=== PATIENT | female | born 1985 | race Caucasian/White ===

== ENCOUNTER 2020-08-29 12:26 | Emergency (ER) | payer OTHER ==
[~2020-08-29] VITALS: Ht 170.2 cm; Wt 98.0 kg
[~2020-08-29 12:26] MED LIST: PRENA1 TRUE CO1 EACH PO
[2020-08-29] MEDS ORDERED: STOOL SOFTENER100 MG PO (12:58)
[2020-08-29] MEDS ORDERED: ONDANSETRON ODT8 MG PO (16:31)
== END 2020-08-29 17:07 | disposition home or self-care (01) ==
LOC: ED 12:26
DX: K80.20 Calculus of gallbladder without cholecystitis without obstruction (principal); Z88.0 Allergy status to penicillin
CPT/HCPCS: 76705; 80053; 81001; 83690; 84703; 85025; 96374; 99285-25; J2405

== ENCOUNTER 2021-05-06 05:40 | Day surgery (SDC) | payer OTHER ==
[~2021-05-06] VITALS: Ht 170.2 cm; Wt 95.9 kg
[~2021-05-06 05:40] MED LIST changes: +ONDANSETRON ODT8 MG PO; +STOOL SOFTENER100 MG PO
[2021-05-06] MEDS ORDERED: MULTI-VITAMIN1 EACH PO (06:00)
--- NOTE | 2021-05-06 09:13 | NUR ---
05/06/21 0913 Comfort Rosas 0818 PT TO PACU THRASHING AND KICKING SHE TOOK HER O2 MASK OFF. DENIES PAIN OR NAUSEA. 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
--- NOTE | 2021-05-06 10:18 | OR ---
[facility] [address] [place], [place] [address] Signed DATE OF OPERATION: 05/06/2021 SURGEON: Ophelia Sousa MD PREOPERATIVE DIAGNOSIS: Cholecystitis with cholelithiasis. POSTOPERATIVE DIAGNOSIS: Cholecystitis with cholelithiasis. PROCEDURES: Laparoscopic cholecystectomy with intraoperative cholangiogram. ESTIMATED BLOOD LOSS: Minimal. FINDINGS: Isadora indeed had multiple stones in the gallbladder. There were some cholesterolosis as well. She had some chronic inflammatory changes around the gallbladder as well. The common bile duct was unremarkable on the intraoperative cholangiogram. INDICATIONS: Isadora is a 36-year-old female, who now had three children, all born by . Earlier this year, she had a severe attack with epigastric abdominal pain radiating through to her back. She had been to the emergency room. Ultrasound revealed multiple small stones along with some sludge. The common bile duct was unremarkable. Gallbladder wall was not particularly thickened. There was no pericholecystic fluid. She felt better after being treated and was allowed to go home from the ER. She has continued to have intermittent right upper quadrant abdominal pain but not nearly as severe as her attack back in August 2020. She had been to her primary care provider. She was asked to see me as a general surgeon. I met with Isadora and her in the office. She told me her mother and both sisters had their gallbladders removed. Consequently, she is familiar with this process. I gave her a brochure in the office on the gallbladder. We went through it page by page. She understands the location and function of the gallbladder. We discussed laparoscopic versus open cholecystectomy. There is risk including, but not limited to bleeding, infection, scarring, change in contour of the skin, damage to bowel, damage to main bile duct, incisional hernias and other unforeseen comorbidities. She understands expected intraop and postop course. She had expressed understanding and wished to proceed. Electronically Signed By: OPHELIA SOUSA MD 05/06/21 1018 PATIENT NAME: ISADORA MURPHY OPERATIVE REPORT DATE OF : 89 REPORT #: [id number] PHYSICIAN: OPHELIA SOUSA MD PCP: YINA BURKS MD REPORT IS CONFIDENTIAL AND NOT TO BE RELEASED WITHOUT AUTHORIZATION [facility] [address] [place] [id number] Signed DESCRIPTION OF PROCEDURE: I met with Isadora and her this morning in our preop area. After answering the questions, she was taken in the operating room and placed in the supine position under general endotracheal tube anesthesia. Appropriate padding and monitoring were placed. She was given preoperative antibiotics along with subcutaneous heparin. SCDs were utilized. She was then prepped and draped in the usual sterile fashion. All trocars were placed in their usual positions under direct visualization of camera without difficulty. The gallbladder was grasped and elevated in the right upper quadrant. We took pictures throughout for photodocumentation. The triangle of [place] was dissected free and a clip had been placed on the cystic artery and it was divided. We introduced the intraoperative cholangiocatheter into the cystic duct. The intraoperative cholangiogram was found to be unremarkable. The cystic duct stump was secured with a PDS Endoloop along with two clips to torrey its location. The gallbladder was then carefully removed from the gallbladder fossa with the help of cautery and placed into an EndoCatch bag. After this, we used our laparoscopic suturing device to pass 0-Vicryl suture on either side of the fascia of the subxiphoid trocar site. This was tied down to close this fascia primarily. All the gas was allowed to escape. The gallbladder was removed. Our circulating nurse took pictures for photodocumentation of the gallbladder. The fascia of the supraumbilical trocar site was closed with interrupted [id number] and simple 0-Vicryl sutures. Local anesthetic was injected into all trocar sites. Each trocar site was irrigated and suctioned out until clear. The skin and dermis of each trocar site were closed with interrupted 3-0 subcuticular Monocryl sutures. Dry gauze and tape were then applied to all four incisions. Isadora was then awakened from her anesthesia, extubated in the OR, and taken to recovery room in stable condition. Ophelia Sousa MD ALB/MODL /[id number] cc: MD Yina Flores MD Electronically Signed By: OPHELIA SOUSA MD 05/06/21 1018 PATIENT NAME: ISADORA MURPHY OPERATIVE REPORT DATE OF : [birth year] REPORT #: [id number] PHYSICIAN: OPHELIA SOUSA MD PCP: YINA BURKS MD REPORT IS CONFIDENTIAL AND NOT TO BE RELEASED WITHOUT AUTHORIZATION [address] [address] Signed Copies: OPHELIA SOUSA MD ~ Electronically Signed By: OPHELIA SOUSA MD 05/06/21 1018 PATIENT NAME: ISADORA MURPHY OPERATIVE REPORT DATE OF : [birth year] REPORT #: [id number] PHYSICIAN: OPHELIA SOUSA MD PCP: YINA BURKS MD REPORT IS CONFIDENTIAL AND NOT TO BE RELEASED WITHOUT AUTHORIZATION
--- NOTE | 2021-05-06 10:24 | NUR ---
6245 PT BACK TO DS FROM PACU AWAKE AND ALERT DENIES PAIN OR NAUSEA, PT DRINKING WATER TOLERATES WELL.
--- NOTE | 2021-05-06 11:08 | NUR ---
PT UP TO BATHROOM AMBULATES WITH MIN ASSIST. SHE WAS ABLE TO VOID 300ML OF CLEAR YELLOW URINE.
--- NOTE | 2021-05-06 11:28 | NUR ---
PT WAS GETTING DRESSED AND STARTED HAVING ABD PAIN 6/10 REQUESTED PAIN MEDS. CHRIS GIVEN SHE WILL BE WAITING 20 MIN BEFORE GOING HOME
--- NOTE | 2021-05-06 11:51 | NUR ---
1140 PT REPORTS PAIN IS BETTER 4/10 SHE CONTINUES TO HAVE DRY COUGH AND REPORTS IT ONLY HURTS WHEN SHE COUGHS.
--- NOTE | 2021-05-09 17:11 | PATH ---
[facility] [address] [facility] [place], [place] [address] Signed SPECIMEN(S): A GALLBLADDER AND STONES SPECIMEN SOURCE: A. GALLBLADDER AND STONES CLINICAL HISTORY: Cholecystitis/cholelithiasis. Laparoscopic cholecystectomy. FINAL PATHOLOGIC DIAGNOSIS: Gallbladder, cholecystectomy: - Chronic cholecystitis with cholesterolosis. - Cholelithiasis. NAL:cml:C2NR MICROSCOPIC EXAMINATION: Histologic sections of all submitted blocks are examined by light microscopy. These findings, together with the gross examination, support the pathologic diagnosis. GROSS DESCRIPTION: The specimen, labeled "EH, gallbladder," is received in formalin and consists of Specimen: Previously opened gallbladder. Dimensions: 7 cm in length and 4.6 cm in inner circumference. Serosa: Violaceous and smooth. Cystic Duct: Unobstructed. Calculi: Several green gallstones within the container and within the gallbladder that range size from 0.5-0.6 cm in diameter. Mucosa: [place]-gomez and velvety. Wall thickness: 0.3 cm. Lymph node: No pericystic lymph nodes are grossly identified. Additional: None. Design Eng sections are submitted in cassette (A1). JS (under the direct supervision of a pathologist) The Gross Description was prepared using a voice recognition system. The report was reviewed for accuracy; however, sound-alike word errors, addition and/or deletions may occur. If there is any question about this report, please contact Client Services. PERFORMING LABORATORY: The technical component was performed by [employer], Denise Villeda, PATIENT NAME: HASISADORA ROWE PATHOLOGY DATE OF : 89 REPORT #: [id number] PHYSICIAN: MAGDIEL PATHOLOGY PCP: JODIE BURKS MD REPORT IS CONFIDENTIAL AND NOT TO BE RELEASED WITHOUT AUTHORIZATION [facility] [address] [place], [place] [address] [place] [address] (Watermaster: Chapis Estevez MD; CLIA# [id number]). [facility], [address] [place] [id number] (CLIA# [id number]). Diagnostician: Jocelyne Armenta MD Pathologist Electronically Signed 05/09/2021 Copies: ~ PATIENT NAME: ISADORA MURPHY PATHOLOGY DATE OF : 89 REPORT #: [id number] PHYSICIAN: MAGDIEL ALBA PCP: JODIE BURKS MD REPORT IS CONFIDENTIAL AND NOT TO BE RELEASED WITHOUT AUTHORIZATION
== END 2021-05-06 11:40 | disposition home or self-care (01) ==
LOC: DS 05:40
PROVIDERS: ATTEND Colon & Rectal Surgery
PROC: BF130ZZ Fluoroscopy of Gallbladder and Bile Ducts using High Osmolar Contrast (ICD-10-PCS; 2021-05-06)
PROC: 0FT44ZZ Resection of Gallbladder, Percutaneous Endoscopic Approach (ICD-10-PCS; principal; 2021-05-06 06:45)
DX: K80.10 Calculus of gallbladder with chronic cholecystitis without obstruction (principal); I10 Essential (primary) hypertension; J45.20 Mild intermittent asthma, uncomplicated; Z87.891 Personal history of nicotine dependence
CPT/HCPCS: 00790; 74300; J0131; J0330; J0690; J1100; J1644; J1885; J2001; J2250; J2405; J2704; J3010; J7121; Q9967

== ENCOUNTER 2021-09-23 16:43 | Emergency (ER) | payer OTHER ==
[~2021-09-23] VITALS: Ht 170.2 cm; Wt 96.7 kg
[~2021-09-23 16:43] MED LIST changes: +MULTI-VITAMIN1 EACH PO
[2021-09-23] MEDS ORDERED: HYDROXYZINE HCL25 MG PO (17:54)
--- NOTE | 2021-09-27 19:03 | EKG ---
[facility] [address] [facility] [place] [address] Signed Suspect arm lead reversal, interpretation assumes no reversal Unusual P axis, possible ectopic atrial rhythm with undetermined rhythm irregularity Lateral infarct , age undetermined Abnormal ECG No previous ECGs available Confirmed by DEVIN LOU MD ([id number]) on 09/27/2021 7:03:20 PM Electronically Signed By: DEVIN LOU MD 09/27/21 1903 PATIENT NAME: ISADORA MURPHY Electrocardiogram DATE OF : 89 PHYSICIAN: DEVIN LOU MD REPORT #: [id number] REPORT IS CONFIDENTIAL AND NOT TO BE RELEASED WITHOUT AUTHORIZATION
== END 2021-09-23 18:13 | disposition home or self-care (01) ==
LOC: ED 16:43
DX: F41.9 Anxiety disorder, unspecified (principal); I10 Essential (primary) hypertension; Z88.0 Allergy status to penicillin; Z79.899 Other long term (current) drug therapy
CPT/HCPCS: 93005; 93010; 99284-25; Q0177